=== PATIENT | male | born 1960 | race African-American/Black ===

== ENCOUNTER 2023-09-25 12:50 | Emergency (ER) | payer OTHER ==
[~2023-09-25] VITALS: Ht 175.3 cm; Wt 75.7 kg
[2023-09-25] MEDS ORDERED: KETOROLAC TROMETHAMINE 15 MG/ML VIAL IM ONE (16:30)
[2023-09-25] MEDS ORDERED: CYCLOBENZAPRINE 10 MG TABLET PO ONE (16:30)
[2023-09-25] MEDS ORDERED: LIDOCAINE 5% (PATCH) 1 EA PATCH TP ONE ×2 (16:30→16:48)
[2023-09-25] MEDS ORDERED: KETOROLAC TROMETHAMINE 15 MG/ML VIAL ONE (16:48)
[2023-09-25] MEDS ORDERED: CYCLOBENZAPRINE 10 MG TABLET ONE (16:49)
[2023-09-25 17:48] VITALS: BP 136/76; TEMP 98.2; O2SAT 100
== END 2023-09-25 17:48 | disposition home or self-care (01) ==
LOC: ER 12:50
DX: S13.4XXA Sprain of ligaments of cervical spine, initial encounter (principal); Z60.2 Problems related to living alone; V49.9XXA Car occupant (driver) (passenger) injured in unspecified traffic accident, initial encounter; Y93.89 Activity, other specified; Y92.89 Other specified places as the place of occurrence of the external cause; Y99.8 Other external cause status
CPT/HCPCS: 99283; 96372; 72040; J1885

== ENCOUNTER 2024-02-25 19:59 | Emergency (ER) | payer OTHER ==
[~2024-02-25] VITALS: Ht 172.7 cm; Wt 77.1 kg
[2024-02-25] MEDS: IV NS 0.9% 500 ML BAG IV ONE (22:52)
[2024-02-25 23:07] LABS: BASOPHILS % (AUTO) 0.5 % (0.0-2.0); EOSINOPHILS # (AUTO) 0.2 K/uL (0.0-0.7); EOSINOPHILS % (AUTO) 3.5 % (0.0-6.0); HEMATOCRIT 40 % (39-51); HEMOGLOBIN 13.9 g/dL (13.5-17.5); LYMPHOCYTES # (AUTO) 2.5 K/uL (0.8-4.8); LYMPHOCYTES % (AUTO) 47.6 % (20.0-44.0); MEAN CORPUSCULAR HEMOGLOBIN 33 PG (26.0-33.0); MEAN CORPUSCULAR HGB CONC 35 g/dl (31.0-36.0); MEAN CORPUSCULAR VOLUME 97 fL (80-96); MONOCYTES # (AUTO) 0.5 K/uL (0.1-1.30); MONOCYTES % (AUTO) 9.9 % (2.0-12.0); NEUTROPHILS % (AUTO) 38.5 % (43.0-81.0); PLATELET COUNT (AUTO) 228 K/uL (150-450); RED BLOOD CELL COUNT(AUTO) 4.18 MIL/uL (4.5-6.0); RED CELL DISTRIBUTION WIDTH 13.7 % (11.5-15.0); WHITE BLOOD COUNT (AUTO) 5.2 K/uL (4.3-11.0)
[2024-02-25 23:21] LABS: ALANINE AMINOTRANSFERASE 26 U/L (12-78); ALBUMIN 3.3 g/dL (3.4-5.0); ALKALINE PHOSPHATASE 111 U/L (46-116); ASPARTATE AMINOTRANSFERASE 18 U/L (15-37); BILIRUBIN,DIRECT 0.1 mg/dL (0.0-0.2); BILIRUBIN,TOTAL 0.2 mg/dL (0.2-1.0); CALCIUM, SERUM 9.2 mg/dL (8.5-10.1); CARBON DIOXIDE 28 mmol/L (21-32); CHLORIDE 106 mmol/L (98-107); CREATININE 1.1 mg/dL (0.6-1.3); GLUCOSE 97 mg/dL (74-106); POTASSIUM 4.3 mmol/L (3.5-5.1); SODIUM SERUM 141 mmol/L (136-145); TOTAL PROTEIN, SERUM 6.9 g/dL (6.4-8.2); UREA NITROGEN, BLOOD 8 mg/dL (7-18)
[2024-02-25 23:23] LABS: INR 0.97 (0.91-1.10); PROTHROMBIN TIME 10.3 SECS (9.2-11.1)
[2024-02-25 23:32] LABS: APPEARANCE,URINE CLEAR (CLEAR); BILIRUBIN,URINE NEGATIVE (NEGATIVE); BLOOD, URINE NEGATIVE Ery/uL (NEGATIVE); COLOR,URINE YELLOW (YELLOW); KETONES,URINE NEGATIVE (NEGATIVE); NITRITE, URINE NEGATIVE (NEGATIVE); PH,URINE 6.5 (5.0-8.0); PROTEIN,URINE NEGATIVE (NEGATIVE); UGLUCOSE NEGATIVE (NEGATIVE); UROBILINOGEN,URINE 0.2 EU/dL (0.2)
[2024-02-25 23:39] LABS: LEUKOCYTE ESTERASE ,URINE NEGATIVE (NEGATIVE)
[2024-02-26 00:10] VITALS: BP 131/76; TEMP 98; O2SAT 99
== END 2024-02-26 00:11 | disposition home or self-care (01) ==
LOC: ER 20:00
DX: R42 Dizziness and giddiness (principal); R53.1 Weakness; Z60.2 Problems related to living alone
CPT/HCPCS: 99285; 96360; 70450; 71045; 93005; 85025; 80048; 80076; 81003; 36415; 84484; 85730; J7040

== ENCOUNTER 2025-02-12 09:10 | Emergency (ER) | payer OTHER ==
[~2025-02-12] VITALS: Ht 172.7 cm; Wt 81.6 kg
[2025-02-12 09:52] LABS: BASOPHILS % (AUTO) 0.6 % (0.0-2.0); EOSINOPHILS # (AUTO) 0.2 K/uL (0.0-0.7); EOSINOPHILS % (AUTO) 3.2 % (0.0-6.0); HEMATOCRIT 47 % (39-51); HEMOGLOBIN 15.7 g/dL (13.5-17.5); LYMPHOCYTES # (AUTO) 1.5 K/uL (0.8-4.8); LYMPHOCYTES % (AUTO) 26.9 % (20.0-44.0); MEAN CORPUSCULAR HEMOGLOBIN 32 PG (26.0-33.0); MEAN CORPUSCULAR HGB CONC 34 g/dl (31.0-36.0); MEAN CORPUSCULAR VOLUME 96 fL (80-96); MONOCYTES # (AUTO) 0.5 K/uL (0.1-1.30); MONOCYTES % (AUTO) 9.7 % (2.0-12.0); NEUTROPHILS # (AUTO) 3.3 K/uL (1.8-8.9); NEUTROPHILS % (AUTO) 59.6 % (43.0-81.0); PLATELET COUNT (AUTO) 239 K/uL (150-450); RED BLOOD CELL COUNT(AUTO) 4.86 MIL/uL (4.5-6.0); RED CELL DISTRIBUTION WIDTH 13.4 % (11.5-15.0); WHITE BLOOD COUNT (AUTO) 5.6 K/uL (4.3-11.0)
[2025-02-12 09:59] LABS: CALCIUM, SERUM 9.7 mg/dL (8.5-10.1); CARBON DIOXIDE 27 mmol/L (21-32); CHLORIDE 104 mmol/L (98-107); CREATININE 1.2 mg/dL (0.6-1.3); GLUCOSE 123 mg/dL (74-106); POTASSIUM 4.2 mmol/L (3.5-5.1); SODIUM SERUM 139 mmol/L (136-145); UREA NITROGEN, BLOOD 12 mg/dL (7-18)
[2025-02-12 10:06] LABS: ALANINE AMINOTRANSFERASE 19 U/L (12-78); ALBUMIN 3.9 g/dL (3.4-5.0); ALKALINE PHOSPHATASE 100 U/L (46-116); ASPARTATE AMINOTRANSFERASE 13 U/L (15-37); BILIRUBIN,DIRECT 0.1 mg/dL (0.0-0.2); BILIRUBIN,TOTAL 0.5 mg/dL (0.2-1.0); LIPASE 24 U/L (16-77); TOTAL PROTEIN, SERUM 7.6 g/dL (6.4-8.2)
[2025-02-12] MEDS ORDERED: FAMO-131 PO (10:28)
[2025-02-12 11:03] VITALS: BP 148/60; TEMP 98.1; O2SAT 98
== END 2025-02-12 11:00 | disposition home or self-care (01) ==
LOC: ER 09:14
DX: R10.9 Unspecified abdominal pain (principal); R55 Syncope and collapse; Z60.2 Problems related to living alone
CPT/HCPCS: 36415; 71045-TC; 80048-TC; 80076-TC; 83690-TC; 84484-TC; 85025-TC